=== PATIENT | male | born 1985 | race Caucasian/White ===

== ENCOUNTER 2019-05-27 16:37 | Emergency (ER) | payer OTHER ==
--- NOTE | 2019-05-27 16:40 | PDOC ---
Rapid Medical Evaluation Chief Complaint: Pain, Acute Time Seen by Provider: 05/27/19 16:40 Medical Evaluation: 05/27/19 16:43 c/o nausea, vomiting x 1 day with generalized pain. denies fever/ chills PE: patient alert ox3 A; nausea and vomiting P: ua zofran patient to the Er for further management of care. Discharge Disposition - Diagnosis Nausea & vomiting - Referrals - Patient Instructions - Post Discharge Activity
[2019-05-27 16:47] VITALS: BP 103/57; PULSE 75; TEMP 98.7; BMI 22.6
[2019-05-27] MEDS ORDERED: ONDANSETRON *ODT* 4 MG TABLET SL ONE (16:47)
[2019-05-27] MEDS ORDERED: ONDANSETRON *ODT* 4 MG TABLET ONE (17:23)
[2019-05-27 17:35] LABS: PH,URINE 6.5 (5.0-8.0); URINE APPEARANCE CLOUDY; URINE BILIRUBIN NEGATIVE (NEGATIVE); URINE COLOR YELLOW; URINE GLUCOSE (UA) NEGATIVE (NEGATIVE); URINE KETONE NEGATIVE (NEGATIVE); URINE LEUK ESTERASE NEGATIVE (NEGATIVE); URINE NITRITE NEGATIVE (NEGATIVE); URINE PROTEIN NEGATIVE (NEGATIVE); URINE UROBILINOGEN 0.2 mg/dL (0.2-1.0)
--- NOTE | 2019-05-27 17:37 | PDOC ---
History of Present Illness <Caroline Ortez - Last Filed: 05/27/19 18:43> - General History Source: Patient Exam Limitations: Language Barrier ([facility] #[id number]) - History of Present Illness Initial Comments: 05/27/19 17:35 HISTORY OF PRESENT ILLNESS: This is a 34-year-old male denies medical history of presents emergency department for evaluation of nausea with 1 episode of vomiting last night after using intranasal cocaine. Patient reports he had the single episode of vomiting which relieved his nausea and then he returned to baseline. Currently the patient denies all complaints but is requesting evaluation for symptoms experience yesterday. No recent travel or sick contacts. PAST MEDICAL HISTORY: Denies past medical history SURGICAL HISTORY: Denies ALLERGIES: No known drug allergies Tobacco: denies ETOH: occasional with cocaine Illicits: IN cocaine REVIEW OF SYSTEMS General/Constitutional: Denies fever or chills. Denies weakness, weight change. HEENT: Denies change in vision. Denies ear pain or discharge. Denies sore throat. Cardiovascular: Denies chest pain or shortness of breath. Respiratory: Denies cough, wheezing, or hemoptysis. Gastrointestinal: see HPI Genitourinary: Denies dysuria, frequency, or change in urination. Musculoskeletal: Denies joint or muscle swelling or pain. Denies neck or back pain. Skin and breasts: Denies rash or easy bruising. Neurologic: Denies headache, vertigo, loss of consciousness, or loss of sensation. Psychiatric: Denies depression or anxiety. Endocrine: Denies increased thirst. Denies abnormal weight change. Hematologic/Lymphatic: Denies anemia, easy bleeding, or history of blood clots. Allergic/Immunologic: Denies hives or skin allergy. Denies latex allergy. PHYSICAL EXAM General Appearance: Well-appearing, appropriately dressed. No apparent distress , no intoxication. HEENT: EOMI, PERRLA, normal ENT inspection, normal voice, TMs normal, pharynx normal. No conjunctival pallor. No photophobia, scleral icterus. Neck: Supple. Trachea midline. No tenderness, rigidity, carotid bruit, stridor , lymphadenopathy, or thyromegaly. Respiratory/Chest: Lungs CTAB. No shortness of breath, chest tenderness, respiratory distress, accessory muscle use. No crackles, rales, rhonchi, stridor , wheezing, dullness Cardiovascular: RRR. S1, S2. No JVD, murmur, bradycardia, tachycardia. Vascular Pulses: Dorsalis-Pedis (R): 2+, Dorsalis-Pedis (L): 2+ Gastrointestinal/Abdominal: Normal bowel sounds. Abdomen soft, non-distended. No tenderness or rebound tenderness. No organomegaly, pulsatile mass, guarding, hernia, hepatomegaly, splenomegaly. Lymphatic: No adenopathy, tenderness. Musculoskeletal/Extremities: Normal inspection. FROM of all extremities, normal capillary refill. Pelvis Stable. No CVA tenderness. No tenderness to extremities, pedal edema, swelling, erythema or deformity. Integumentary: Appropriate color, dry, warm. No cyanosis, erythema, jaundice or rash Neurologic: pinion staker II-XII intact. Fully oriented, alert. Appropriate mood/affect. Motor strength 5/5. No appreciable EOM palsy, facial droop or sensory deficit. <Kaveh Valdovinos - Last Filed: 05/27/19 18:47> - General Chief Complaint: Nausea/Vomiting Stated Complaint: VOMITING Time Seen by Provider: 05/27/19 16:40 Past History <Caroline Ortez - Last Filed: 05/27/19 18:43> - Past Medical History COPD: No - Immunization History Immunization Up to Date: Yes - Psycho Social/Smoking Cessation Hx Smoking History: Current every day smoker Have you smoked in the past 12 months: Yes Information on smoking cessation initiated: No Hx Alcohol Use: No Drug/Substance Use Hx: No <Kaveh Valdovinos - Last Filed: 05/27/19 18:47> - Past Medical History Allergies/Adverse Reactions: Allergies Allergy/AdvReac Type Severity Reaction Status Date / Time No Known Allergies Allergy Verified 05/27/19 16:42 *Physical Exam - Vital Signs Last Vital Signs Temp Pulse Resp BP Pulse Ox 98.7 F 75 17 103/57 L 99 05/27/19 16:43 05/27/19 16:43 05/27/19 16:43 05/27/19 16:43 05/27/19 16:43 <Caroline Ortez - Last Filed: 05/27/19 18:43> - Vital Signs Last Vital Signs Temp Pulse Resp BP Pulse Ox 98.7 F 75 17 103/57 L 99 05/27/19 16:43 05/27/19 16:43 05/27/19 16:43 05/27/19 16:43 05/27/19 16:43 <Kaveh Valdovinos - Last Filed: 05/27/19 18:47> Heart Score/ECG Review - History History: Moderately suspicious - Electrocardiogram EKG: Normal - Age Age: </= 45 - Risk Factors Based on the list above the patient has:: No risk factors known - Troponin Troponin: </= normal limit - Score Heart Score - Total: 1 - ECG Intrepretation Rhythm: Regular Rhythm - [place]: Normal - ECG Impressions Normal ECG: Yes <Kaveh Valdovinos - Last Filed: 05/27/19 18:47> ED Treatment Course - LABORATORY CBC & Chemistry Diagram: 05/27/19 17:33 05/27/19 17:33 - ADDITIONAL ORDERS Additional order review: Laboratory Results 05/27/19 17:28 Urine Color Yellow Urine Appearance Cloudy Urine pH 6.5 Ur Specific [place] 1.025 Urine Protein Negative Urine Glucose (UA) Negative Urine Ketones Negative Urine Blood Negative Urine Nitrite Negative Urine Bilirubin Negative Urine Urobilinogen 0.2 Ur Leukocyte Esterase Negative 05/27/19 17:33 RBC 4.65 MCV 90.9 MCHC 32.7 RDW 14.1 MPV 9.4 Neutrophils % 68.9 Lymphocytes % 23.5 Monocytes % 6.5 Eosinophils % 0.5 Basophils % 0.6 - Medications Given in the ED: ED Medications Discontinued Medications Generic Name Dose Route Start Last Admin Trade Name Freq PRN Reason Stop Dose Admin Ondansetron HCl 4 mg 05/27/19 16:47 05/27/19 17:34 Zofran Odt - SL 05/27/19 16:48 4 mg ONCE ONE Administration <Caroline Ortez - Last Filed: 05/27/19 18:43> - LABORATORY CBC & Chemistry Diagram: 05/27/19 17:33 05/27/19 17:33 - Medications Given in the ED: ED Medications Discontinued Medications Generic Name Dose Route Start Last Admin Trade Name Freq PRN Reason Stop Dose Admin Ondansetron HCl 4 mg 05/27/19 16:47 05/27/19 17:34 Zofran Odt - SL 05/27/19 16:48 4 mg ONCE ONE Administration <Kaveh Valdovinos - Last Filed: 05/27/19 18:47> Medical Decision Making - Medical Decision Making 05/27/19 17:49 The patient was seen and evaluated in conjunction with midlevel provider under my direct supervision, ancillary studies were reviewed. I agree with the plan as outlined BPM ANALYST Bonifacio. HPI, workup/dispo as outlined. VS reviewed, wnl. UA neg for infection, labs unremarkable. potassium mildly low, replete oral challenge, likely sx from cocaine/marijuana use (utox pos) trop neg. EKG sinus rhythm, normal rate, no ST - T wave abnormalities. anticipate discharge, pcp followup, return precautions 05/27/19 18:43 05/27/19 18:43 <Caroline Ortez - Last Filed: 05/27/19 18:43> - Medical Decision Making 05/27/19 17:36 A/P: 34-year-old male for evaluation after cocaine use Physical exam is within normal limits Given patient had an episode of nausea with vomiting after using cocaine I will get one set of cardiac enzymes and an EKG which be reassuring regarding coronary vasospasm and ACS. Urine toxicology Zofran 4 mg orally per RME Reassess 05/27/19 18:44 EKG sinus rhythm with rate of 63. Normal intervals present. Normal axis. No ischemic changes noted. CBC is unremarkable Chemistries notable for potassium 3.3 with a troponin of less than 0.02 Urinalysis is unremarkable Urine toxicology positive for THC and cocaine. This patient is currently asymptomatic with normal laboratory testing and EKG I will discharge the patient home to follow-up in [place] care as needed. I discussed the physical exam findings, ancillary test results and final diagnoses with the patient. I answered all of the patient's questions. The patient was satisfied with the care received and felt comfortable with the discharge plan and treatment plan. The patient will call their primary care physician within 24 hours to arrange follow-up and will return to the Emergency Department with any new, persistent or worsening symptoms. Portions of this note have been documented using voice recognition software. As a result, errors may occur in the manager intranet process. Effort has been made to correct all grammatical and manager intranet error, but some may have been missed. <Kaveh Valdovinos - Last Filed: 05/27/19 18:47> Discharge <Caroline Ortez - Last Filed: 05/27/19 18:43> - Discharge Information Problems reviewed: Yes - Admission No <Kaveh Valdovinos - Last Filed: 05/27/19 18:47> - Discharge Information Clinical Impression/Diagnosis: Cocaine use Nausea & vomiting Qualifiers: Vomiting type: unspecified Vomiting Intractability: non-intractable Qualified Code(s): R11.2 - Nausea with vomiting, unspecified Condition: Fair Disposition: HOME - Patient Discharge Instructions Additional Instructions: Avoid cocaine use. Laboratory testing and EKG today were normal. Should you desire treatment to stop using cocaine go to [address] [place] [address] for detox or rehabilitation. Your emergency department visit is incomplete until he follow-up with your regular doctor. Return to the emergency department for any new or worsening symptoms. Thank you very much for choosing us to provide your emergent health care needs. Alem el consumo de cocana. Las pruebas de laboratorio y el electrocardiograma de henry fueron normales. Si desea tratamiento para dejar de usar cocana, vaya a [address] [place] [address] para desintoxicarse o rehabilitarse. Khanna visita al departamento de emergencias est incompleta hasta que l abdoulaye un seguimiento con khanna mdico habitual. Regrese al departamento de emergencias por cualquier sntoma nuevo o que empeore. Muchas joyce por elegirnos para satisfacer rosalia necesidades de atencin mdica de emergencia.
[2019-05-27 17:48] LABS: BASO % 0.6 % (0-2.0); EOS % 0.5 % (0-4.5); HEMATOCRIT 42.2 % (35.4-49); HEMOGLOBIN 13.8 GM/dL (11.7-16.9); LYMPH % 23.5 % (8-40); MCH 29.7 pg (25.7-33.7); MCHC 32.7 g/dl (32.0-35.9); MEAN CELL VOLUME 90.9 fl (80-96); MEAN PLT VOLUME 9.4 fl (7.5-11.1); MONO % 6.5 % (3.8-10.2); NEUT % 68.9 % (42.8-82.8); PLATELET COUNT 205 K/MM3 (134-434); RBC 4.65 M/mm3 (4.00-5.60); RDW 14.1 % (11.9-15.9); WHITE BLOOD COUNT 9.9 K/mm3 (4.0-10.0)
[2019-05-27 18:00] LABS: METHADONE, UR NEGATIVE ng/ml (CUTOFF=300); OPIATES, URI NEGATIVE ng/ml (CUTOFF=300); PHENCYCLIDINE,URINE NEGATIVE ng/ml (CUTOFF=25); URINE AMPHETAMINES NEGATIVE ng/ml (CUTOFF=500); URINE BARBITURATES NEGATIVE ng/ml (CUTOFF=200); URINE BENZODIAZEPINES NEGATIVE ng/ml (CUTOFF=200)
[2019-05-27 18:02] LABS: COCAINE, UR POSITIVE ng/ml (CUTOFF=300)
[2019-05-27 18:26] LABS: ALBUMIN 3.7 g/dl (3.4-5.0); ALK PHOS 77 U/L (45-117); ANION GAP 8 MMOL/L (8-16); BILIRUBIN,TOTAL 0.4 mg/dL (0.2-1); BLOOD UREA NITROGEN 12.3 mg/dL (7-18); CALCIUM 8.8 mg/dL (8.5-10.1); CHLORIDE 104 mmol/L (98-107); CO2 28 mmol/L (21-32); GLUCOSE,RANDOM 64 mg/dL (74-106); POTASSIUM 3.3 mmol/L (3.5-5.1); SGOT/AST 10 U/L (15-37); SGPT/ALT 20 U/L (13-61); SODIUM 140 mmol/L (136-145); TOT PROT 6.8 g/dl (6.4-8.2)
--- NOTE | 2019-05-28 14:09 | EKG ---
Test Reason : Blood Pressure : / mmHG Vent. Rate : 063 BPM Atrial Rate : 063 BPM P-R Int : 126 ms QRS Dur : 084 ms QT Int : 394 ms P-R-T Axes : 019 080 053 degrees QTc Int : 403 ms NORMAL SINUS RHYTHM NONSPECIFIC ST ABNORMALITY ABNORMAL ECG NO PREVIOUS ECGS AVAILABLE Confirmed by ADY DELUCA MD ([id number]) on 05/28/2019 2:08:54 PM Referred By: Confirmed By:ADY DELUCA MD
== END 2019-05-27 18:50 | disposition home or self-care (01) ==
LOC: JER 16:37
DX: F14.10 Cocaine abuse, uncomplicated (principal); R11.2 Nausea with vomiting, unspecified; F17.210 Nicotine dependence, cigarettes, uncomplicated
CPT/HCPCS: 36415; 80053; 80307; 81003; 82550; 84484; 85025; 93005; 93010; 99283-25; Q0162